=== PATIENT | female | born 2000 | race Caucasian/White ===

== ENCOUNTER 2023-04-02 02:51 | Emergency (ER) | payer MEDICARE, SELFPAY ==
[2023-04-02 02:57] VITALS: BP 142/105
[2023-04-02 03:31] VITALS: BMI 26.5
--- NOTE | 2023-04-02 04:07 | ED.GENMED ---
History of Present Illness
<JEANNINE Ramachandran - Last Filed: 04/02/23 04:16>
General
Chief Complaint: Throat Problem
Source: patient
Exam Limitations: none
Time Seen by Provider: 04/02/23 03:49
Nursing documentation reviewed up to this point in time: agreed with
Travel History
Have you had any contact with someone who has COVID-19?: No
Do you have any symptoms of coronavirus? Fever > 100 degrees, chills, cough, shortness of breath, sore throat, loss of taste or smell, muscle aches, or headache?: No
History of Present Illness
History of Present Illness:
22 y/o F presents to ED complaining of L throat and ear pain starting 1800. Patient reports pain with swallowing. States ears only hurt when she swallows. Describes pain as 'swallowing a knife'. Ear pain 10/21. Patient recently recovering from cold
last week, had dry cough and stuffy nose. Patient is feeling better from cold but states she now has pain with swallowing. Took Advil at 0200. Denies recent abx use. Denies CP, palpitations, SOB, cough, congestion, NVD, abdominal pain or headache.
If applicable-neuro sx onset
Onset of symptoms known: Yes
Date of onset of symptoms: 04/01/23
Review of Systems
<JEANNINE Ramachandran - Last Filed: 04/02/23 04:16>
Review of Systems
Allergies reviewed?: Yes
All Other Systems: ROS reviewed and negative except as documented in HPI and ROS
Constitutional: Reports no symptoms
EENT: Reports sore throat and other (ear pain)
Respiratory: Reports no symptoms
Cardiac: Reports no symptoms
ABD/GI: Reports no symptoms
: Reports no symptoms
Musculoskeletal: Reports no symptoms
Skin: Reports no symptoms
Neurological: Reports no symptoms
Endocrine: Reports no symptoms
Hematologic/Lymphatic: Reports no symptoms
Psychiatric: Reports no symptoms
Phy Exam
<JEANNINE Ramachandran - Last Filed: 04/02/23 04:16>
General Physical Exam
General Presentation: well appearing and no apparent distress
General age: appears stated age
General Skin: warm and dry
General Habitus: normal
General Mental: alert
General Hydration: appears well hydrated
ENT Exam
ENT Exam: EOMI, TM's normal and pharynx normal
Eye Exam
Eye Exam: PERRL and conjunctiva normal
Cardiovascular Exam
Cardiovascular Exam: regular rate/rhythm, no edema, no gallop, no murmur and normal peripheral pulses
Pulmonary Exam
Pulmonary Exam: lungs clear, no respiratory distress, no rales, no crackles and no rhonchi
Gastrointestinal Exam
Gastrointestinal Exam: normal bowel sounds, non tender, soft and non distended
Neurological Exam
Neurological Exam: alert and oriented x3
Musculoskeletal Exam
Musculoskeletal Exam: full ROM
Skin Exam
Skin Exam: normal color, warm/dry and no rash
Psychiatric Exam
Psychiatric Exam: normal mood/affect
Course
<JEANNINE Ramachandran - Last Filed: 04/02/23 04:16>
Orders/Labs/Results
Orders:
Orders
04/02/23 04:35
Rapid Strep Group A Urgent
TAN Source: Throat/Pharynx
Specimen Description:
Date Specimen was Collected: 04/02/23
Time Specimen was Collected: 04:33
Vital Signs
Initial and Last Documented VS:
Initial Vital Signs
Temp Pulse Resp BP Pulse Ox
98.6 F 130 22 142/105 98
04/02/23 02:57 04/02/23 02:57 04/02/23 02:57 04/02/23 02:57 04/02/23 02:57
Last Documented Vital Signs
Temp Pulse Resp BP Pulse Ox
98.6 F 130 22 142/105 96
04/02/23 02:57 04/02/23 02:57 04/02/23 02:57 04/02/23 02:57 04/02/23 03:37
<Shelbie Franklin DO - Last Filed: 04/02/23 05:09>
Orders/Labs/Results
Orders:
Orders
04/02/23 04:35
Rapid Strep Group A Urgent
TAN Source: Throat/Pharynx
Specimen Description:
Date Specimen was Collected: 04/02/23
Time Specimen was Collected: 04:33
Vital Signs
Initial and Last Documented VS:
Initial Vital Signs
Temp Pulse Resp BP Pulse Ox
98.6 F 130 22 142/105 98
04/02/23 02:57 04/02/23 02:57 04/02/23 02:57 04/02/23 02:57 04/02/23 02:57
Last Documented Vital Signs
Temp Pulse Resp BP Pulse Ox
98.6 F 130 22 142/105 96
04/02/23 02:57 04/02/23 02:57 04/02/23 02:57 04/02/23 02:57 04/02/23 03:37
<JEANNINE Ramachandran - Last Filed: 04/02/23 04:16>
MDM/Problems Addressed
Differential Diagnosis Includes:
Strep
Viral
<JEANNINE Ramachandran - Last Filed: 04/02/23 04:16>
*Critical Care Note
Total Time (30-74mins, 75-104mins- exclusive of procedures): Not Applicable
ED Attending Note
<JEANNINE Ramachandran - Last Filed: 04/02/23 04:16>
-
Portions of this chart may have been created with voice recognition software.� Occasional wrong word or��sound alike� substitutions may have occurred due to the inherent limitations of voice recognition software.
<Shelbie Franklin, DO - Last Filed: 04/02/23 05:09>
ED Attending Note
Patient seen and examined by attending physician: Yes
I performed the substantive portion of visit, reviewed & personally made and approve the management plan that is documented in note by myself or AGA.: Yes
I performed a history and physical exam of patient and discussed management with resident, I reviewed resident's note and agree with documented findings and plan of care.: Yes
ED Attending Note:
This is a 22-year-old female who has history of hypertension presents with left-sided sore throat, left ear pain that began around 6 PM yesterday evening. Sore throat and ear pain are most noted with swallowing but she has no difficulty swallowing.
She did note mild left upper posterior molar dental pain a few days ago and has had similar sporadic dental pain but tooth ache resolved prior to onset of sore throat yesterday evening. She denies pain with chewing. No neck pain. No cough no
shortness of breath, no fevers or chills. She denies nasal congestion nor rhinorrhea.
She did take a dose of ibuprofen, 600 mg around 2 AM with current mild-moderate improvement in pain.
GENERAL: 22-year-old female appears her stated age, bright and alert, pleasant, appears in no acute distress.
EYE: pupils equal and reactive. anicteric
NECK: Supple, nontender, no meningismus, no significant adenopathy.
ENT: posterior pharynx has very minimal erythema left tonsillar arch but no edema nor exudate. Oral mucosa is moist. TM clear b/l, nares patent. No rhinorrhea. There is no dental tenderness nor gingival tenderness nor erythema. No overt dental
caries.
CARDIAC: Regular rate and rhythm. no murmur.
LUNGS: Clear breath sounds bilaterally, no acute respiratory distress, no wheezes/rales/rhonchi
ABDOMEN: Soft, nondistended, without focal tenderness
NEUROLOGICAL: Alert and oriented x3, no focal neuro deficits. Gait is retana and steady.
SKIN: Warm and dry, normal color, skin intact. No rash.
MUSCULOSKELETAL: No C/C/E. peripheral pulses are full and equal b/l. No palpable tenderness.
PSYCH: Normal and appropriate interaction.
Concern for acute viral pharyngitis, strep pharyngitis.
No evidence of otitis media nor definitive dental source for pain.
Will check rapid strep.
04/02/2023 0506 AM
Rapid strep is negative.
Overall patient is quite well in appearance.
I suspect viral pharyngitis. Recommend supportive measures, staying well-hydrated, continue ibuprofen as needed, warm salt water gargles.
Will give a one-time dose of prednisone here.
Prompt follow-up with PCP for recheck.
Discharge Plan
Departure
Patient Disposition: Home (Routine Discharge)
Date of Disposition: 04/02/23
Time of Disposition: 05:08
Patient with high blood pressure during this ER visit?: No
Condition: Good
Discharge Problem:
Acute pharyngitis
Instructions: Sore Throat, Adult (DC)
Referrals:
PRIVATE,PHYSICIAN [Family Provider] - Call in 1-3 days for appt
Interventions
Interventions:
*Risk Screen - Suicide Last Done: 04/02/23 02:57
*General Assessment Last Done: 04/02/23 03:32
*Neglect/Abuse Screening Last Done: 04/02/23 02:57
ED- Fall Risk Assessment Last Done: 04/02/23 03:34
*ED COVID-19 Vaccine History Last Done: 04/02/23 03:31
ED-EENT Assessment Last Done: 04/02/23 03:36
ED- Pulmonary Assessment Last Done: 04/02/23 03:37
[2023-04-02] MEDS: DELTASONE 40 MG PO (05:13)
[2023-04-02 05:19] VITALS: BP 144/95
[2023-04-02 05:21] VITALS: BP 144/95
== END 2023-04-02 05:22 | disposition home or self-care (01) ==
LOC: EMR 02:51
PROVIDERS: EMERGENCY PHYSICIAN Emergency Medicine
DX: J02.9 Acute pharyngitis, unspecified (principal); I10 Essential (primary) hypertension
CPT/HCPCS: 99283; 87070; 87880